=== PATIENT | male | born 1985 | race Caucasian/White ===

== ENCOUNTER 2017-03-06 19:21 | Inpatient (IN) | payer MEDICAID ==
[~2017-03-06] VITALS: Ht 167.6 cm; Wt 83.5 kg
[~2017-03-06 19:21] MED LIST: BACTRIM DS1 TAB PO; PERCOCET1 TA2 PO
[2017-03-07 02:11] LABS: UA SPECIFIC GRAVITY >=1.030 (1.005-1.035); microscopic required? YES; urine erythrocyte 3+ (NEGATIVE)
[2017-03-07 02:17] LABS: CALCIUM 8.3 mg/dL (8.5-10.1); CARBON DIOXIDE 30.3 mmol/L (21-32); CHLORIDE SERUM 103 mmol/L (98-107); CREATININE SERUM 1.1 mg/dL (0.7-1.3); GFR1 > 60 mL/min; GLUCOSE SERUM 98 mg/dL (74-106); POTASSIUM SERUM 3.5 mmol/L (3.5-5.1); SODIUM SERUM 140 mmol/L (136-145)
[2017-03-07 02:21] LABS: ALBUMIN 3.5 g/dL (3.4-5.0); ALKALINE PHOSPHATASE 82 U/L (46-116); ALT/SGPT 32 U/L (16-63); AST/SGOT 25 U/L (15-37); BILIRUBIN TOTAL 0.4 mg/dL (0.20-1.00); TOTAL PROTEIN, SERUM 7.3 g/dL (6.4-8.2)
[2017-03-07 02:30] LABS: BASOPHIL % 0.6 % (0-2); PLATELET COUNT 135 x10^3mcL (130-400); RED CELL DISTRIBUTION WIDTH 13.7 % (11.5-14.5)
[2017-03-07 09:52] VITALS: BP 119/88
[2017-03-07 10:46] LABS: MAGNESIUM 2.3 mg/dL (1.8-2.4); PHOSPHOROUS 4.6 mg/dL (2.5-4.9)
[2017-03-07 10:47] LABS: CHOLESTEROL/HDL RATIO 4.7
[2017-03-07 10:50] LABS: FREE T4 1.41 ng/dL (0.76-1.46); FREE THYROXINE INDEX 3.8 ug/dL (1.4-4.5); T4(THYROXINE) 10.3 ug/dL (4.7-13.3)
[2017-03-07 10:56] VITALS: Ht 167.6 cm; Wt 83.5 kg
[2017-03-07 12:03] VITALS: BP 119/80
[2017-03-07 12:16] LABS: T3 TOTAL 1.29 ng/mL
[2017-03-07 13:23] VITALS: BP 99/66
[2017-03-07 17:21] VITALS: BP 101/61
[2017-03-07 21:08] VITALS: BP 104/58
[2017-03-07 21:13] LABS: AMPHETAMINE QUAL UR NONE DETECTED (NEG <=1000)
[2017-03-08 05:30] VITALS: BP 103/62
[2017-03-08 09:56] VITALS: BP 99/58
[2017-03-08 14:00] VITALS: BP 103/57
[2017-03-08 15:32] LABS: BASOPHIL % 0.7 % (0-2); PLATELET COUNT 147 x10^3mcL (130-400)
[2017-03-08 15:54] LABS: CALCIUM 8.1 mg/dL (8.5-10.1); CARBON DIOXIDE 27.3 mmol/L (21-32); CHLORIDE SERUM 107 mmol/L (98-107); CREATININE SERUM 0.9 mg/dL (0.7-1.3); GFR1 > 60 mL/min; GLUCOSE SERUM 90 mg/dL (74-106); PHOSPHOROUS 3.3 mg/dL (2.5-4.9); POTASSIUM SERUM 3.9 mmol/L (3.5-5.1); SODIUM SERUM 142 mmol/L (136-145)
[2017-03-08] MEDS ORDERED: CYCLOBENZAPRINE5 MG PO (16:39)
[2017-03-08] MEDS ORDERED: APAP/HYDROCODON1 T13 PO (16:39)
[2017-03-08] MEDS ORDERED: COL100 PO (16:39)
[2017-03-08 17:29] VITALS: BP 103/57
[2017-03-08 18:29] VITALS: BP 105/58
== END 2017-03-08 18:47 | disposition home or self-care (01) | DRG 251 ==
LOC: ED 19:21 → DU 03-07 08:17 → MU 03-08 10:13
PROVIDERS: Emergency Medicine; Family Medicine
DX: R10.9 Unspecified abdominal pain (principal); N17.0 Acute kidney failure with tubular necrosis; M54.5 Low back pain; G89.29 Other chronic pain; R31.29 Other microscopic hematuria; J45.909 Unspecified asthma, uncomplicated; Z79.891 Long term (current) use of opiate analgesic
CPT/HCPCS: 84439; 87804; J1170; J1885; J2270; J7030; Q0092